=== PATIENT | female | born 1970 | race Caucasian/White ===

== ENCOUNTER 2016-11-25 14:06 | Emergency (ER) | payer OTHER | END 2016-11-25 15:09 | disposition home or self-care (01) | LOC: ER 14:06 | DX: L73.2 Hidradenitis suppurativa (principal); F17.210 Nicotine dependence, cigarettes, uncomplicated; Z79.899 Other long term (current) drug therapy; Z79.82 Long term (current) use of aspirin | CPT/HCPCS: 87070; 87186; 99070; 99283-25 ==